=== PATIENT | male | born 1990 | race Two or more races ===

== ENCOUNTER 2023-06-25 19:26 | Emergency (ER) | payer OTHER, MEDICAID ==
[~2023-06-25] VITALS: Ht 167.6 cm; Wt 116.0 kg
[2023-06-25 20:42] LABS: Urine Bacteria NONE SEEN /hpf (None Seen); Urine Blood Negative /uL (Negative); Urine Clarity Clear (Clear); Urine Color Colorless (Yellow); Urine Protein, UAD Negative (Negative); Urine Specific Gravity 1.044 (1.001-1.035); Urine Urobilinogen Normal (Negative); Urine WBC 1 /hpf (0 - 3); Urine pH 6.5 (5.0-8.0)
[2023-06-25 21:07] LABS: Basophils # (auto) 0 10 ^3/uL (0-0.2); Basophils % (auto) 0.4 % (0.0-2.0); Eosinophils # (auto) 0.4 10 ^3/uL (0-0.8); Eosinophils % (auto) 3.9 % (0.0-7.0); Hematocrit 45.5 % (41.0-53.0); Hemoglobin 15.2 g/dL (13.5-17.5); Lymphocytes # (auto) 1.6 10 ^3/uL (0.4-5.4); Lymphocytes % (auto) 14.5 % (10.0-50.0); Mean Corpuscular Hemoglobin 28.4 pg (28.0-32.0); Mean Corpuscular Hgb Conc. 33.5 g/dL (32.0-36.0); Mean Corpuscular Volume 84.9 fL (80.0-100.0); Monocytes # (auto) 0.6 10 ^3/uL (0-1.3); Monocytes % (auto) 5.8 % (0.0-12.0); Neutrophils # (auto) 8.2 10 ^3/uL (1.6-8.6); Neutrophils % (auto) 75.4 % (37.0-80.0); Red Blood Cells 5.36 10^6/uL (4.5-5.90); Red Cell Distribution Width 14.1 % (11.8-14.3); White Blood Cell 10.9 10^3/uL (4.4-10.8)
[2023-06-25 21:22] LABS: Alanine Aminotransferase 44 U/L (7-40); Albumin 4.8 g/dL (3.2-4.8); Alkaline Phosphatase 127 U/L (46-116); Anion Gap 6 (5-15); Aspartate Aminotransferase 17 U/L (13-40); BUN/Creatinine Ratio 7.6 (10.0-20.0); Bilirubin, Total 0.7 mg/dL (0.2-1.0); Blood Urea Nitrogen 7 mg/dL (9-23); Calcium 9.4 mg/dL (8.7-10.4); Carbon Dioxide 27 mmol/L (20-30); Chloride 104 mmol/L (98-107); Glucose 295 mg/dL (74-106); Potassium 3.8 mmol/L (3.5-5.1); Sodium 137 mmol/L (136-145); Total Protein 7.9 g/dL (5.7-8.2)
[2023-06-25] MEDS ORDERED: IPRATROPIUM BROM 0.5 MG/2.5ML INH SOL NEB ONE (23:00)
[2023-06-25] MEDS ORDERED: SODIUM CHLORIDE 0.9% 1,000 ML IV ONE (23:00)
[2023-06-25] MEDS ORDERED: ALBUTEROL SULF 2.5 MG/0.5ML(0.5%) NEB SOLN NEB ONE (23:00)
[2023-06-25 23:44] LABS: COVID19 ANTIGEN SOFIA FIA NEGATIVE (NEGATIVE)
[2023-06-25 23:45] VITALS: PULSE 109; RESP 20; O2SAT 99
[2023-06-26] MEDS ORDERED: ACETAMINOPHEN 325 MG TAB PO ONE (00:45)
[2023-06-26] MEDS ORDERED: BENZ200C64 PO (00:56)
[2023-06-26] MEDS ORDERED: ALBUAER3 IN (00:56)
[2023-06-26] MEDS ORDERED: MET500T PO (00:56)
[2023-06-26] MEDS ORDERED: AUG875T PO (00:56)
[2023-06-26] MEDS ORDERED: SODIUM CHLORIDE 0.9% 1,000 ML IV ONE (01:00)
[2023-06-26 02:05] VITALS: BP 119/78; PULSE 88; RESP 16; TEMP 99; O2SAT 98
== END 2023-06-26 02:10 | disposition home or self-care (01) ==
LOC: ER 19:26
DX: J20.9 Acute bronchitis, unspecified (principal); R73.9 Hyperglycemia, unspecified; R50.9 Fever, unspecified; R06.02 Shortness of breath; Z20.822 Contact with and (suspected) exposure to COVID-19
CPT/HCPCS: 36415; 71045; 80053; 81001; 82962; 85025; 87426; 94640; 96360; 96361; 99285; J7030; J7644

== ENCOUNTER 2024-04-19 21:52 | Emergency (ER) | payer OTHER, MEDICAID ==
[~2024-04-19] VITALS: Ht 170.2 cm; Wt 118.8 kg
[~2024-04-19 21:52] MED LIST: ALBUAER3 IN; AUG875T PO; BENZ200C64 PO; MET500T PO
[2024-04-19 22:10] VITALS: RESP 20
[2024-04-20] MEDS ORDERED: ALPR1TAB7 PO (00:36)
[2024-04-20 01:11] VITALS: BP 114/76; PULSE 90; O2SAT 98
== END 2024-04-20 01:16 | disposition home or self-care (01) ==
LOC: ER 21:52 → EDBD 21:52 → ER 04-20 01:16
DX: F41.0 Panic disorder [episodic paroxysmal anxiety] (principal); R10.13 Epigastric pain; F41.9 Anxiety disorder, unspecified; Z79.899 Other long term (current) drug therapy
CPT/HCPCS: 93005

== ENCOUNTER 2024-07-28 16:38 | Emergency (ER) | payer OTHER, MEDICAID ==
[~2024-07-28] VITALS: Ht 154.9 cm; Wt 109.6 kg
[~2024-07-28 16:38] MED LIST changes: +ALPR1TAB7 PO
[2024-07-28 17:09] VITALS: BP 133/84; PULSE 81; RESP 15; O2SAT 99
[2024-07-28] MEDS ORDERED: METH4PAK PO (18:00)
== END 2024-07-28 18:30 | disposition home or self-care (01) ==
LOC: ER 16:43
DX: G51.0 Bell's palsy (principal); E11.9 Type 2 diabetes mellitus without complications
CPT/HCPCS: 70450

== ENCOUNTER 2025-04-12 00:28 | Emergency (ER) | payer OTHER, MEDICAID ==
[~2025-04-12] VITALS: Ht 167.6 cm; Wt 105.5 kg
[~2025-04-12 00:28] MED LIST changes: +METH4PAK PO
--- NOTE | 2025-04-12 01:12 | ED.PDOC ---
History of Present Illness HPI Comments 34-year-old male with a history of diabetes and deafness brought in by family complaining of left flank and mid abdominal pain for the last 2 hours. Patient states this morning he had painful urination, and that the pain radiates to his left testicle. He also reports left testicular swelling.. He denied any fever, nausea, vomiting, diarrhea or hematuria. He states he does feel constipated, however had a bowel movement today. Chief Complaint: Flank Pain Time Seen by MD: 00:33 Primary Care Provider: SUZIE Allergies: Coded Allergies: NO KNOWN ALLERGIES (Unverified , 06/25/23) Home Meds Active Scripts Cephalexin Monohydrate (Cephalexin) 500 Mg Cap, 1 CAP PO QID for 10 Days, #40 CAP Prov:NADEEN PATRICIA MD 04/12/25 Tamsulosin Hcl (Flomax) 0.4 Mg Cap, 1 CAP PO DAILY, #14 CAP 11 Refills One p.o. daily, 30 minutes after same meal. Take until pain resolves. Prov:NADEEN PATRICIA MD 04/12/25 Ibuprofen Micronized (Ibuprofen) 800 Mg Tab, 800 MG PO Q8HP PRN, #30 TAB Prn pain, take with food. Prov:NADEEN PATRICIA MD 04/12/25 Hydrocodone-Acetaminophen (Hydrocodone Bitartrate/AC 5-325 mg) 1 Tab Tab, 1 TAB PO Q6HP PRN, #20 TAB Prn pain Prov:NADEEN PATRICIA MD 04/12/25 Methylprednisolone (Medrol Dosepak) 4 Mg Matthias, 4 MG PO UD, #21 TAB UAD Prov:BURTON ELLIOTT MD 07/28/24 Alprazolam (Alprazolam) 1 Mg Tab, 1 TAB PO DAILY, #10 TAB Prov:GABRIEL NG PAC 04/20/24 Amoxicillin & Pot Clavulanate (AUGMENTIN TABLET) 875 Mg Tb, 1 TAB PO BID for 10 Days, #20 TAB Prov:REAL GARCIA Q DIRECTOR AMBULATORY 06/26/23 Benzonatate (Benzonatate) 200 Mg Cap, 1 CAP PO TID, #30 CAP As needed for cough Prov:REAL GARCIA Q DIRECTOR AMBULATORY 06/26/23 Albuterol Sulfate (VENTOLIN MDI) 90 Mcg Ih, 1 PUFF IN Q4HR, #1 INH As needed for cough nasal congestion shortness of breath or wheeze Prov:REAL GARCIA Q DIRECTOR AMBULATORY 06/26/23 Metronidazole (Metronidazole) 500 Mg Tab, 500 MG PO BID for 30 Days, #60 TAB Prov:REAL GARCIA Q DIRECTOR AMBULATORY 06/26/23 Information Source: Patient Mode of Arrival: Ambulatory Severity: Moderate Timing: Hours Duration: Intermittent Past Medical History PAST MEDICAL HISTORY: Anxiety, DM Past Medical History (Other): deafness Surgical History: Denies all surgeries Family History Family History: Reviewed,noncontributory to illness Social History Smoker: Non-Smoker Alcohol: Denies ETOH Use Drugs: Denies Drug Use Lives In: Home All Other Systems: Reviewed and Negative (Comprehensive systems review obtained and negative except for what is stated in the HPI.) Physical Exam General Appearance: No Apparent Distress, Obese HEENT: Other (Pupils and face symmetric. Moist mucous membranes.) Neck: Full Range of Motion, Normal Inspection Respiratory: Lungs Clear, No Accessory Muscle Use, No Respiratory Distress, Normal Breath Sounds Cardiovascular: No Edema, No JVD, Regular Rate/Rhythm Breast Exam: Deferred Gastrointestinal: Soft, Tenderness (Left flank and mid abdominal) Genitalia: Testicle (No scrotal edema or discoloration. Normal testicular lie.) Pelvic: Deferred Rectal: Deferred Extremities: Normal inspection, Normal range of motion, Non-tender, No pedal edema Neurologic: Alert (Oriented x4), Normal Affect, Normal Mood, Other (Ambulatory) Cerebellar Function: NOT DONE Reflexes: NOT DONE Skin: Dry, Normal Color, Warm Lymphatic: NOT DONE Was a procedure done? Was a procedure done?: No Differential Dx Considerations may include: Musculoskeletal pain, UTI, kidney stone, hydrocele, testicular torsion, epididymitis, orchitis, among others X-Ray, Labs, Meds, VS Vital Signs Date Time Temp Pulse Resp B/P (MAP) Pulse Ox O2 Delivery O2 Flow Rate FiO2 04/12/25 04:05 82 15 139/78 (98) 94 04/12/25 02:00 85 15 98 Room Air* 0 21 04/12/25 02:00 97.4 85 15 140/81 (100) 98 97.4 04/12/25 00:44 97.5 88 16 126/89 (101) 98 97.5 Lab Test 04/12/25 04:00 04/12/25 01:09 Range/Units Urine Color Colorless Yellow Urine Clarity Clear Clear Urine pH 5.5 5.0-9.0 Urine Specific [place] 1.008 1.001-1.035 Urine Protein Negative Negative Urine Ketones Negative Negative Urine Blood 1+ H Negative /uL Urine Nitrite Negative Negative Urine Bilirubin Negative Negative Urine Urobilinogen Normal Negative mg/dL Urine Leukocyte Esterase Negative Negative /uL Urine RBC 5 0 - 3 /hpf Urine Microscopic WBC 1 0-3 /HPF Urine Squamous Epithelial Cells None seen <5 /hpf Urine Bacteria None seen None Seen /hpf Urine Glucose Normal Normal mg/dL White Blood Count 8.4 4.4-10.8 10^3/uL Red Blood Count 5.20 4.5-5.90 10^6/uL Hemoglobin 14.8 13.5-17.5 g/dL Hematocrit 44.0 41.0-53.0 % Mean Corpuscular Volume 84.5 80.0-100.0 fL Mean Corpuscular Hemoglobin 28.5 28.0-32.0 pg Mean Corpuscular Hemoglobin Concent 33.7 32.0-36.0 g/dL Red Cell Distribution Width 15.1 H 11.8-14.3 % Platelet Count 254 140-450 10^3/uL Mean Platelet Volume 9.2 6.9-10.8 fL Neutrophils (%) (Auto) 55.6 37.0-80.0 % Lymphocytes (%) (Auto) 34.7 10.0-50.0 % Monocytes (%) (Auto) 5.4 0.0-12.0 % Eosinophils (%) (Auto) 3.5 0.0-7.0 % Basophils (%) (Auto) 0.8 0.0-2.0 % Neutrophils # (Auto) 4.7 1.6-8.6 10 ^3/uL Lymphocytes # (Auto) 2.9 0.4-5.4 10 ^3/uL Monocytes # (Auto) 0.5 0-1.3 10 ^3/uL Eosinophils # (Auto) 0.3 0-0.8 10 ^3/uL Basophils # (Auto) 0.1 0-0.2 10 ^3/uL Nucleated Red Blood Cells 0.0 % Sodium Level 142 136-145 mmol/L Potassium Level 4.0 3.5-5.1 mmol/L Chloride Level 106 98-107 mmol/L Carbon Dioxide Level 26 20-31 mmol/L Anion Gap 10 5-15 Blood Urea Nitrogen 11 9-23 mg/dL Creatinine 1.01 0.700-1.30 mg/dL Glomerular Filtration Rate Calc 101 >90 mL/min BUN/Creatinine Ratio 10.9 10.0-20.0 Serum Glucose 133 H 74-106 mg/dL Lactic Acid Level 1.2 0.4-2.0 mmol/L Calcium Level 9.2 8.7-10.4 mg/dL Current Medications Medications (Trade) Dose Ordered Sig/Elena Route Start Time Stop Time Status Last Admin Sodium Chloride 1,000 ml @ 1,000 mls/hr Q1H ONCE IV 04/12/25 00:45 04/12/25 01:44 DC 04/12/25 01:59 Ketorolac Tromethamine (Toradol Injection) 30 mg ONCE ONCE IV 04/12/25 00:45 04/12/25 00:46 DC 04/12/25 01:59 Pantoprazole Sodium (Protonix) 40 mg ONCE ONCE IV 04/12/25 00:45 04/12/25 00:46 DC 04/12/25 01:58 Magnesium Sulfate/ Dextrose 100 ml @ 100 mls/hr Q1H IV 04/12/25 02:45 04/12/25 04:44 04/12/25 03:47 PROCEDURE(s): ABPL - CT AB PEL WO CON-NO ORAL OR IV REASON: L flank pain ORDER NUMBER(s): [id number], ACCESSION NUMBER(s): [id number] CLINICAL HISTORY: L flank pain TECHNIQUE: CT of the abdomen and pelvis was performed without intravenous contrast. This exam was performed according to our departmental dose optimization program. Up-to-date CT equipment and radiation dose reduction techniques are utilized as appropriate. CTDI: 20.37+ 0.14 DLP: 1376.55 WID: COMPARISON: None FINDINGS: Lower Thorax: Unremarkable. Liver and Biliary system: Mild hepatomegaly measuring 18 cm craniocaudal. Borderline hepatic steatosis. No definite hepatic lesion. Gallbladder is normal caliber. No biliary ductal dilatation. Spleen: Unremarkable. Adrenal Glands and Kidneys: Normal adrenal glands. There is an obstructing 4 mm calculus in the proximal left ureter causing mild left hydronephrosis. Additional small nonobstructing bilateral renal calculi. Pancreas and Retroperitoneum: Unremarkable. Aorta and Major Vessels: Unremarkable. Bowel, Mesentery and Peritoneal space: Unremarkable. Pelvis: Unremarkable. Abdominal wall and Osseous Structures: Minor lower thoracic and lumbar spondylosis. No destructive osseous lesion. IMPRESSION: Obstructing 4 mm calculus in the proximal left ureter causing mild left hydronephrosis. Additional nonobstructing bilateral renal calculi. Mild hepatomegaly with borderline hepatic steatosis. X-Ray, Labs, Meds, VS Comment 34-year-old male with a history of diabetes brought in by family complaining of left flank pain radiating to the left testicle Vitals unremarkable Exam remarkable for left flank tenderness to palpation Rhythm strip independently interpreted by me: Sinus rhythm, rate 88, no ectopy. CT abdomen and pelvis IMPRESSION: Obstructing 4 mm calculus in the proximal left ureter causing mild left hydro nephrosis. Additional nonobstructing bilateral renal calculi. Mild hepatomegaly with borderline hepatic steatosis. CBC, basic metabolic panel and lactate normal , UA remarkable for blood Patient treated with the following in the ED: 1 L 0.9 normal saline IV bolus, Toradol 30 mg IV, Protonix 40 mg IV, magnesium rider 2 g IV On re-evaluation, patient states pain has improved. Vitals were stable. Patient appears stable for discharge with close outpatient follow-up with his primary physician for referral to Urology. Patient will also be referred to Dr. Lyon. Time of 1ST Reevaluation: 02:48 Reevaluation 1ST: Improved Patient Education/Counseling: Diagnosis, Treatment Family Education/Counseling: Diagnosis, Treatment SEPSIS Sepsis Screen Physician Orders Ct Ab Pel Wo Con-No Oral Or Iv (04/12/25 00:41) Blood Culture (04/12/25 00:41) Testicular Ultrasound (04/12/25 01:32) Magnesium Sulfate 1gm/100ml (04/12/25 02:45) Straightcath If Unable To Void (04/12/25 03:44) Vital Signs Date Time Temp Pulse Resp B/P (MAP) Pulse Ox O2 Delivery O2 Flow Rate FiO2 04/12/25 04:05 82 15 139/78 (98) 94 04/12/25 02:00 85 15 98 Room Air* 0 21 04/12/25 02:00 97.4 85 15 140/81 (100) 98 97.4 04/12/25 00:44 97.5 88 16 126/89 (101) 98 97.5 Laboratory Tests Test 04/12/25 01:09 Lactic Acid Level 1.2 mmol/L (0.4-2.0) White Blood Count 8.4 10^3/uL (4.4-10.8) Medications Medications Dose Ordered Sig/Elena Route Start Time Stop Time Status Last Admin Dose Admin Ketorolac Tromethamine 30 mg ONCE ONCE IV 04/12/25 00:45 04/12/25 00:46 DC 04/12/25 01:59 Magnesium Sulfate/ Dextrose 100 ml @ 100 mls/hr Q1H IV 04/12/25 02:45 04/12/25 04:44 04/12/25 03:47 Pantoprazole Sodium 40 mg ONCE ONCE IV 04/12/25 00:45 04/12/25 00:46 DC 04/12/25 01:58 Sodium Chloride 1,000 ml @ 1,000 mls/hr Q1H ONCE IV 04/12/25 00:45 04/12/25 01:44 DC 04/12/25 01:59 Departure 1 Departure Time of Disposition: 02:48 Impression: Primary Impression: Hydronephrosis concurrent with and due to calculi of kidney and ureter Disposition: 01 HOME / SELF CARE / HOMELESS Condition: Stable Referrals: LUCIANA LYON MD Additional Instructions: Your blood tests were unremarkable. Your CT scan showed you have a kidney stone causing your pain. I have prescribed medication for your symptoms. Follow-up with your primary doctor in 1-2 days for referral to an urologist for further evaluation of your kidney stone. Alternatively, follow-up directly with Dr. Lyon. [address] [address] Ph: [phone] DIAGNOSTIC IMAGING Diagnostic Imaging Report : [id number] Signed PATIENT: CLAUDIA SIDHU ACCT: [id number] UNIT: [id number] : 1990 LOC: ER ROOM / BED: / AGE / SEX: 34 / M ADM STATUS: REG ER SERVICE [id number] ORDERING PHYSICIAN: NADEEN PATRICIA MD PROCEDURE(s): ABPL - CT AB PEL WO CON-NO ORAL OR IV REASON: L flank pain ORDER NUMBER(s): [id number], ACCESSION NUMBER(s): [id number] CLINICAL HISTORY: L flank pain TECHNIQUE: CT of the abdomen and pelvis was performed without intravenous contrast. This exam was performed according to our departmental dose optimization program. Up-to-date CT equipment and radiation dose reduction techniques are utilized as appropriate. CTDI: 20.37+ 0.14 DLP: 1376.55 WID: COMPARISON: None FINDINGS: Lower Thorax: Unremarkable. Liver and Biliary system: Mild hepatomegaly measuring 18 cm craniocaudal. Borderline hepatic steatosis. No definite hepatic lesion. Gallbladder is normal caliber. No biliary ductal dilatation. Spleen: Unremarkable. Adrenal Glands and Kidneys: Normal adrenal glands. There is an obstructing 4 mm calculus in the proximal left ureter causing mild left hydronephrosis. Additional small nonobstructing bilateral renal calculi. Pancreas and Retroperitoneum: Unremarkable. Aorta and Major Vessels: Unremarkable. Bowel, Mesentery and Peritoneal space: Unremarkable. Pelvis: Unremarkable. Abdominal wall and Osseous Structures: Minor lower thoracic and lumbar spondylosis. No destructive osseous lesion. IMPRESSION: Obstructing 4 mm calculus in the proximal left ureter causing mild left hydronephrosis. Additional nonobstructing bilateral renal calculi. Mild hepatomegaly with borderline hepatic steatosis. e-Prescriptions Cephalexin Monohydrate (Cephalexin) 500 Mg Cap 1 CAP PO QID for 10 Days, #40 CAP Prov: NADEEN PATRICIA MD 04/12/25 Tamsulosin Hcl (Flomax) 0.4 Mg Cap 1 CAP PO DAILY, #14 CAP 11 Refills One p.o. daily, 30 minutes after same meal. Take until pain resolves. Prov: NADEEN PATRICIA MD 04/12/25 Ibuprofen Micronized (Ibuprofen) 800 Mg Tab 800 MG PO Q8HP PRN, #30 TAB Prn pain, take with food. Prov: NADEEN PATRICIA MD 04/12/25 Hydrocodone-Acetaminophen (Hydrocodone Bitartrate/AC 5-325 mg) 1 Tab Tab 1 TAB PO Q6HP PRN, #20 TAB Prn pain Prov: NADEEN PATRICIA MD 04/12/25 Discharged With: Relative Critical Care Note Critical Care Time?: No Stability Stability form required: No Heart Score Heart Score: Heart Score Response (Comments) Value History N/A 0 EKG N/A 0 Age N/A 0 Risk Factors N/A 0 Troponin N/A 0 Total 0 I personally scribed for NADEEN PATRICIA MD ([email or web address]) on 04/12/25 at 03:32. Electronically submitted by Anthony Chan ([facility]). NADEEN PATRICIA MD Apr 12, 2025 01:12
[2025-04-12 01:39] LABS: Hematocrit 44.0 % (41.0-53.0); Hemoglobin 14.8 g/dL (13.5-17.5); Mean Corpuscular Hemoglobin 28.5 pg (28.0-32.0); Mean Corpuscular Volume 84.5 fL (80.0-100.0); Nucleated Red Blood Cells % 0.0 %
--- NOTE | 2025-04-12 01:44 | DVH ---
CLINICAL HISTORY: L flank pain TECHNIQUE: CT of the abdomen and pelvis was performed without intravenous contrast. This exam was per formed according to our departmental dose optimization program. Up-to-date CT equipment and radiation dose reduction techniques are utilized as appropriate. CTDI: 20.37+ 0.14 DLP: 1376.55 WID: COMPARISON: None FINDINGS: Lower Thorax: Unremarkable. Liver and Biliary system: Mild hepatomegaly measuring 18 cm craniocaudal. Borderline hepatic steatosi s. No definite hepatic lesion. Gallbladder is normal caliber. No biliary ductal dilatation. Spleen: Unremarkable. Adrenal Glands and Kidneys: Normal adrenal glands. There is an obstructing 4 mm calculus in the proxi mal left ureter causing mild left hydronephrosis. Additional small nonobstructing bilateral renal ca lculi. Pancreas and Retroperitoneum: Unremarkable. Aorta and Major Vessels: Unremarkable. Bowel, Mesentery and Peritoneal space: Unremarkable. Pelvis: Unremarkable. Abdominal wall and Osseous Structures: Minor lower thoracic and lumbar spondylosis. No destructive os seous lesion. IMPRESSION: Obstructing 4 mm calculus in the proximal left ureter causing mild left hydronephrosis. Additional nonobstructing bilateral renal calculi. Mild hepatomegaly with borderline hepatic steatosis.
[2025-04-12 01:48] LABS: Chloride 106 mmol/L (98-107); Potassium 4.0 mmol/L (3.5-5.1); Sodium 142 mmol/L (136-145)
[2025-04-12 01:49] LABS: Anion Gap 10 (5-15); Calcium 9.2 mg/dL (8.7-10.4); Carbon Dioxide 26 mmol/L (20-31)
[2025-04-12 01:54] LABS: BUN/Creatinine Ratio 10.9 (10.0-20.0); Blood Urea Nitrogen 11 mg/dL (9-23); Glucose 133 mg/dL (74-106)
[2025-04-12] MEDS: PANTOPRAZOLE 40 MG/10 ML VIAL INJ IV ONE (01:58)
[2025-04-12] MEDS: SODIUM CHLORIDE 0.9% 1,000 ML IV ONE (01:59)
[2025-04-12] MEDS: KETOROLAC TROMETH 30 MG/ML 1ML VIAL IV ONE (01:59)
[2025-04-12 02:00] VITALS: PULSE 85; RESP 15; TEMP 97.4; O2SAT 98
[2025-04-12] MEDS ORDERED: TAMS-35 PO (02:53)
[2025-04-12] MEDS ORDERED: HYDR-4902 PO (02:53)
[2025-04-12] MEDS ORDERED: IBUP-1455 PO (02:53)
[2025-04-12] MEDS: MAGNESIUM SULFATE 1GM/100ML 100 ML IV SCH (02:54)
[2025-04-12] MEDS ORDERED: CEPH500C PO (03:55)
[2025-04-12] MEDS ORDERED: cefTRIAXone 1GM/50ML D5W 50 ML IV ONE (04:00)
[2025-04-12 04:17] LABS: Urine Protein, UAD Negative (Negative)
[2025-04-12 05:21] VITALS: BP 105/68; PULSE 65; RESP 16; O2SAT 94
== END 2025-04-12 05:54 | disposition home or self-care (01) ==
LOC: ER 00:28
DX: N13.2 Hydronephrosis with renal and ureteral calculous obstruction (principal); E11.9 Type 2 diabetes mellitus without complications; F41.9 Anxiety disorder, unspecified; Z79.899 Other long term (current) drug therapy
CPT/HCPCS: 36415; 74176; 80048; 81001; 83605; 85025; 87040; 96361; 96365; 96366; 96375; 99285; J1885; J2470; J3475; J7030